=== PATIENT | female | born 1970 | race American Indian/Alaskan Native ===

== ENCOUNTER 2022-04-11 13:08 | Emergency (ER) | payer SELFPAY ==
--- NOTE | 2022-04-11 15:01 | Emergency Department Report ---
ED General Adult HPI - General Stated complaint: SINUS Time Seen by Provider: 04/11/22 14:41 - History of Present Illness Initial comments: 51-year-old female no significant past medical history reports to the ER with complaints of sinus pressure and pain for about 1 week. Patient reports taking [id number] medication with no relief. Patient reports having frequent sinus infections on a yearly basis. No other acute signs or symptoms reported. No headache, no chest pain, no shortness of breath, no weakness, no dizziness. - Related Data Previous Rx's Medication Instructions Recorded Last Taken Type Amoxicillin/K Clav Tab [Augmentin 1 tab PO Q12HR 7 Days #14 tab 04/11/22 Unknown Rx 875 mg] Allergies Allergy/AdvReac Type Severity Reaction Status Date / Time diphenhydramine Allergy Hives Verified 04/11/22 16:37 [From Benadryl] ED Review of Systems ROS: Stated complaint: SINUS Other details as noted in HPI Comment: All other systems reviewed and negative ENT: other (Maxillary sinus pressure) ED Past Medical Hx - Past Medical History Previous Medical History?: No - Medications Home Medications: Home Medications Medication Instructions Recorded Confirmed Last Taken Type Amoxicillin/K Clav Tab [Augmentin 1 tab PO Q12HR 7 Days #14 tab 04/11/22 Unknown Rx 875 mg] ED Physical Exam - General General appearance: alert, in no apparent distress - Head Head exam: Present: atraumatic, normocephalic - Eye Eye exam: Present: normal appearance - ENT ENT exam: Present: mucous membranes moist, other (Maxillary sinus pressure noted with tenderness present. No frontal sinus pressure or tenderness.) - Neck Neck exam: Present: normal inspection - Respiratory Respiratory exam: Present: normal lung sounds bilaterally. Absent: respiratory distress - Cardiovascular Cardiovascular Exam: Present: regular rate, normal rhythm. Absent: systolic murmur, diastolic murmur, rubs, gallop - GI/Abdominal GI/Abdominal exam: Present: soft, normal bowel sounds - Extremities Exam Extremities exam: Present: normal inspection - Back Exam Back exam: Present: normal inspection - Neurological Exam Neurological exam: Present: alert, oriented X3 - Psychiatric Psychiatric exam: Present: normal affect, normal mood - Skin Skin exam: Present: warm, dry, intact, normal color. Absent: rash ED Course Vital Signs 04/11/22 16:25 Temperature 98.6 F Pulse Rate 88 Respiratory 16 Rate Blood Pressure 132/70 O2 Sat by Pulse 100 Oximetry ED Medical Decision Making - Medical Decision Making 51-year-old female reports to ER with sinus pressure for 1 week with no relief from [id number] medication. Patient in no acute distress. Patient has sinus pressure in the maxillary sinus area with tenderness noted. Patient to be started on Augmentin 875 twice daily for 7 days. Patient agrees with plan of care. Patient stable for discharge. No further work-up is needed at this time. Patient informed to follow her primary care provider as needed. Patient informed if symptoms are to get worse while on antibiotics to report back to the ER. Patient verbalized understanding. Vital Signs 04/11/22 16:25 Temperature 98.6 F Pulse Rate 88 Respiratory 16 Rate Blood Pressure 132/70 O2 Sat by Pulse 100 Oximetry Critical care attestation.: If time is entered above; I have spent that time in minutes in the direct care of this critically ill patient, excluding procedure time. ED Disposition Clinical Impression: Sinusitis Qualifiers: Sinusitis location: maxillary Chronicity: acute Recurrence: recurrent Qualified Code(s): J01.01 - Acute recurrent maxillary sinusitis Disposition: 01 HOME / SELF CARE / HOMELESS Is pt being admited?: No Condition: Stable Instructions: Sinusitis, Adult, [id number] Prescriptions: Amoxicillin/K Clav Tab [Augmentin 875 mg] 1 tab PO Q12HR 7 Days #14 tab Referrals: JACQUELYN CHEEK MD [Primary Care Provider] - 3-5 Days Forms: Work/School Release Form Time of Disposition: 15:01
[2022-04-11 16:34] VITALS: BP 132/70
== END 2022-04-11 16:25 | disposition home or self-care (01) ==
LOC: ED 13:08
DX: J32.9 Chronic sinusitis, unspecified (principal); Z79.899 Other long term (current) drug therapy
CPT/HCPCS: 99282